=== PATIENT | male | born 1995 | race Caucasian/White ===

== ENCOUNTER 2016-02-20 05:49 | Emergency (ER) | payer BC ==
[2016-02-20 06:01] VITALS: BP 110/65; PULSE 86; TEMP 97.9; BMI 39.9
--- NOTE | 2016-02-20 06:45 | PDOC ---
History of Present Illness - General Chief Complaint: Alcohol intoxication Stated Complaint: INTOX Time Seen by Provider: 02/20/16 06:40 History Source: Family Exam Limitations: No Limitations - History of Present Illness Initial Comments: 02/20/16 06:45 this is a 20-year-old male who comes in via ambulance for intoxication. Patient on arrival was somewhat belligerent awake, alert and able to ambulate without assistance. Patient was without complaints. However it was noted that he did have an abrasion on his right elbow. Patient guards were called and they came to the ER to take him home. PAST MEDICAL HISTORY: no significant history PAST SURGICAL HISTORY: no significant history FAMILY HISTORY: no pertinant history SOCIAL HISTORY: Pt lives with family and is employed. MEDICATIONS: reviewed ALLERGIES: As per nursing notes Review of Systems General: No fevers or chills, no weakness, no weight loss HEENT: No change in vision. No sore throat,. No ear pain CardioVascular: No chest pain or shortness of breath Respiratory:No cough, or wheezing. Gastrointestinal: no nausea, vomitting, diarrhea or constipation, No rectal bleeding Genitourinary: No dysuria, hematuria, or frequency Musculoskeletal: No joint or muscle pain or swelling Neurologic: No headache, vertigo, dizziness or loss of consciousness Psychiatric: nor depression Skin: No rashes or easy bruising Endocrine: no increased thirst or abnormal weight change Allergic: no skin or latex allergy All other systems reviewed and normal GENERAL: The patient is awake, alert, and fully oriented, in no acute distress. HEAD: Normal with no signs of trauma. EYES: Pupils equal, round and reactive to light, extraocular movements intact, sclera anicteric, conjunctiva clear. EXTREMITIES: Normal range of motion, no edema. There is mild abrasion over the right elbow no active bleeding no bony tenderness NEUROLOGICAL: Slightly slurred speech and able to ambulate but with a wide- based gait, grossly intact no focal findings PSYCH: Normal mood, normal affect. SKIN: Warm, Dry, normal turgor, no rashes or lesions noted. Assessment and plan: This is a 20-year-old male who comes in via ambulance for intoxication. Patient's parents arrived shortly after was brought to the ER and were willing to take him home. Patient examined and then discharged home to the care of his parents. Past History - Past Medical History Allergies/Adverse Reactions: Allergies Allergy/AdvReac Type Severity Reaction Status Date / Time No Known Allergies Allergy Unverified 02/20/16 05:57 Home Medications: Ambulatory Orders NK [No Known Home Medication] 02/20/16 Other medical history: DENIES - Psycho/Social/Smoking Cessation Hx Anxiety: No Suicidal Ideation: No Smoking History: Never smoked *Physical Exam - Vital Signs Last Vital Signs Temp Pulse Resp BP Pulse Ox 97.9 F 86 16 110/65 99 02/20/16 05:57 02/20/16 05:57 02/20/16 05:57 02/20/16 05:57 02/20/16 05:57 *DC/Admit/Observation/Transfer Diagnosis at time of Disposition: Intoxication - Discharge Dispostion Disposition: HOME Condition at time of disposition: Stable Admit: No - Patient Instructions Printed Discharge Instructions: DI for Alcohol Abuse Additional Instructions: Drink in moderation. Return to the emergency department immediately with ANY new, persistent or worsening symptoms. Continue any medications as previously prescribed by your physician. You should follow up with your primary doctor as soon as possible regarding today's emergency department visit. . Please make sure your doctor reviews the results of your emergency evaluation. Thank you for coming to the Emergency Department today for your care. It was a pleasure to see you today. Please note that your evaluation is INCOMPLETE until you follow-up with your doctor.
== END 2016-02-20 06:48 | disposition home or self-care (01) ==
LOC: FER 05:49
DX: F10.120 Alcohol abuse with intoxication, uncomplicated (principal)
CPT/HCPCS: 99282-25

== ENCOUNTER 2017-02-23 11:17 | Emergency (ER) | payer OTHER, BC ==
[2017-02-23 11:22] VITALS: BP 143/87; PULSE 105; TEMP 98.6; BMI 41.8
--- NOTE | 2017-02-23 12:16 | PDOC ---
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 - Physicial Exam PE: 02/23/17 12:15 2 Centimeter transverse laceration over the anterior tibia, superficial. No deep punctures or foreign bodies were visualized after extensive irrigation and cleansing. - Medical Decision Making 02/23/17 12:16 Assessment: Superficial laceration Plan: Tetanus immunization. Clean and sutured. Rest and elevate. Follow-up wound check as necessary. Sutures out 1 week.
--- NOTE | 2017-02-23 12:30 | PDOC ---
History of Present Illness - General Chief Complaint: Laceration Stated Complaint: RIGHT LEG LAC Time Seen by Provider: 02/23/17 11:36 History Source: Patient Exam Limitations: No Limitations - History of Present Illness Initial Comments: 02/23/17 12:23 The patient is a 21M with no PMH who presents to the ER after sustaining a laceration on his R leg. 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 He states that it bled and he does not know what the item was. He denies any complaints of numbness, tingling or weakness around or distal to the site of incision. Past History - Past Medical History Allergies/Adverse Reactions: Allergies Allergy/AdvReac Type Severity Reaction Status Date / Time No Known Allergies Allergy Verified 02/23/17 11:18 Home Medications: Ambulatory Orders NK [No Known Home Medication] 02/20/16 COPD: No - Suicide/Smoking/Psychosocial Hx Smoking History: Current every day smoker Number of Cigarettes Smoked Daily: 20 Information on smoking cessation initiated: Yes 'Breaking Loose' booklet given: 02/23/17 Hx Alcohol Use: Yes Drug/Substance Use Hx: No Substance Use Type: Alcohol Review of Systems - Review of Systems Able to Perform ROS?: Yes Is the patient limited Divehi proficient: No Constitutional: No: Chills, Fever HEENTM: No: Eye Pain, Blurred Vision Respiratory: No: Cough, Shortness of Breath Cardiac (ROS): No: Chest Pain, Lightheadedness ABD/GI: No: Nausea, Vomiting Integumentary: Yes: Lesions. No: Bruising, Rash Neurological: No: Numbness, Tingling, Weakness *Physical Exam - Vital Signs Last Vital Signs Temp Pulse Resp BP Pulse Ox 98.6 F 105 H 18 143/87 96 02/23/17 11:17 02/23/17 11:17 02/23/17 11:17 02/23/17 11:17 02/23/17 11:17 - Physical Exam General Appearance: Yes: Appropriately Dressed, Obese. No: Apparent Distress, Mild Distress HEENT: positive: Normal Voice, Hearing Grossly Normal Respiratory/Chest: positive: Lungs Clear, Normal Breath Sounds Cardiovascular: positive: Regular Rhythm, Regular Rate Gastrointestinal/Abdominal: positive: Flat, Soft. negative: Tender Integumentary: positive: Other (1.5 cm superficial laceration over anterior leg) Procedures - Laceration/Wound Repair Right Anterior Leg Wound Length: to 2.5 cm Wound Explored: clean Wound's Depth, Shape: superficial Irrigated w/ Saline: Yes Betadine Prep: No Anesthesia: 1% Lidocaine Amount of Anesthetic (ccs): 1 Wound Debrided: minimal Wound Repaired With: Sutures Suture Size/Type: 4:0 Number of Sutures: 2 Layer Closure: No Sterile Dressing Applied: Yes Medical Decision Making - Medical Decision Making 02/23/17 12:27 The patient is a 21M with no PMH who presents with a 1.5cm superificial laceration over his anterior leg. I sutured it with 2 4-0 nylon sutures and it approximated well. I have instructed the patient to return in 10 days for suture removal. *DC/Admit/Observation/Transfer Diagnosis at time of Disposition: Laceration - Discharge Dispostion Disposition: HOME Condition at time of disposition: Stable Admit: No - Referrals - Patient Instructions Printed Discharge Instructions: DI for Suture Removal Additional Instructions: Please return to the ER if symptoms persist, worsen, or new symptoms arise. Please follow up with your primary care physician in 2-3 days. Please return to the ER if you have any signs or symptoms of chest pain, shortness of breath, uncontrollable fever, chills, nausea, vomiting, numbness, tingling, or weakness in any part of your body, changes in vision, or slurred speech. Please return in 10 days for removal of your sutures. - Post Discharge Activity
[2017-02-23] MEDS ORDERED: DIPHTH,PERTUSS(ACELL),TET 0.5 ML DISP.SYRIN IM ONE (12:32)
== END 2017-02-23 12:37 | disposition home or self-care (01) ==
LOC: FER 11:17
PROC: 0HQKXZZ Repair Right Lower Leg Skin, External Approach (ICD-10-PCS; principal; 2017-02-23)
PROC: 3E0234Z Introduction of Serum, Toxoid and Vaccine into Muscle, Percutaneous Approach (ICD-10-PCS; 2017-02-23)
DX: S81.811A Laceration without foreign body, right lower leg, initial encounter (principal); W26.9XXA Contact with unspecified sharp object(s), initial encounter; Y93.89 Activity, other specified; Y92.410 Unspecified street and highway as the place of occurrence of the external cause
CPT/HCPCS: 90715; 99282-25

== ENCOUNTER 2021-07-08 09:40 | Emergency (ER) | payer OTHER ==
[2021-07-08 10:06] VITALS: BP 111/54; PULSE 118; BMI 49.4
[2021-07-08] MEDS ORDERED: SODIUM CHLORIDE IV ONE (10:07)
[2021-07-08] MEDS ORDERED: ACETAMINOPHEN INJECTION 100 ML IVPB ONE (10:31)
[2021-07-08] MEDS ORDERED: ACETAMINOPHEN 1000 MG/100 ML BAG IVPB ONE (10:32)
[2021-07-08] MEDS ORDERED: CLINDAMYCIN 600MG PREMIX IVPB 600 MG/50 ML BAG IVPB ONE (10:32)
[2021-07-08] MEDS ORDERED: SODIUM CHLORIDE 0.9% 500 ML INFUS.BAG IV ONE ×2 (10:33→12:05)
[2021-07-08] MEDS ORDERED: CLINDAMYCIN PHOSPHATE 600 MG/4 ML VIAL ONE (10:46)
[2021-07-08 10:48] LABS: HEMATOCRIT 48.1 % (35.4-49); HEMOGLOBIN 17.3 G/dL (11.7-16.9); INR 1.27 (0.83-1.09); MCH 34.2 pg (25.7-33.7); MEAN CELL VOLUME 94.8 fl (80-96); MEAN PLT VOLUME 8.5 fl (7.5-11.1); PLATELET COUNT 195.6 10^3/uL (134-434); PROTHROMBIN TIME (PATIENT) 14.6 SEC (9.7-13.0); RBC 5.07 10^6/uL (4.00-5.60); RDW 13.6 % (11.9-15.9); WHITE BLOOD COUNT 14.1 10^3/uL (4.0-10.8)
[2021-07-08 10:51] LABS: ACTIVATED PTT 31.9 SECONDS (25.2-36.5)
[2021-07-08 10:56] LABS: ALBUMIN 4.1 g/dl (3.4-5.0); BILIRUBIN,TOTAL 1.1 mg/dl (0.2-1); CALCIUM 9.3 mg/dl (8.5-10); TOT PROT 7.2 g/dl (6.4-8.2)
[2021-07-08] MEDS ORDERED: LIDOCAINE HCL 1%, 10 MG/ML (20ML VIAL) ONE (12:57)
[2021-07-08 13:23] VITALS: TEMP 99.1
== END 2021-07-08 13:15 | disposition home or self-care (01) ==
LOC: FER 09:40
PROC: 0H96XZZ Drainage of Back Skin, External Approach (ICD-10-PCS; principal; 2021-07-08)
PROC: 3E0333Z Introduction of Anti-inflammatory into Peripheral Vein, Percutaneous Approach (ICD-10-PCS; 2021-07-08)
PROC: 3E03329 Introduction of Other Anti-infective into Peripheral Vein, Percutaneous Approach (ICD-10-PCS; 2021-07-08)
DX: L02.212 Cutaneous abscess of back [any part, except buttock and flank] (principal)
CPT/HCPCS: 0241U-QW; 36415; 76705-TC; 80053; 83605; 85025; 85610; 85730; 86140; 86850; 86900; 86901; 87040; 87070; 87186; 87205; 99284-25